=== PATIENT | male | born 1945 | race Caucasian/White ===

== ENCOUNTER → 2019-12-04 | Outpatient (CLI) | payer MEDICARE ==
[~2019-12-04] MED LIST: AMLO10TA8 PO; ATEN100T PO; ATOR20TA37 PO; BENA40TA3 PO; IBUP200C8 PO; LEVE250T5 PO; METF500T17 PO
[2019-12-04 15:18] LABS: ALANINE AMINOTRANSFERASE 18 U/L (12-78); ALBUMIN 3.8 g/dL (3.4-5.0); ANION GAP 4 mmol/L (5-15); CALCIUM 8.7 mg/dL (8.5-10.1); CHLORIDE 109 mmol/L (98-107); CREATININE 1.01 mg/dL (0.7-1.3)
[2019-12-04 15:20] LABS: ALKALINE PHOSPHATASE 82 U/L (45-117); BILIRUBIN,TOTAL 0.6 mg/dL (0.2-1.0); TOTAL PROTEIN 7.3 g/dL (6.4-8.2)
== END | disposition home or self-care (01) ==
LOC: STAR 13:50
PROVIDERS: ATTEND Internal Medicine
DX: Z01.818 Encounter for other preprocedural examination (principal); R00.1 Bradycardia, unspecified; I44.7 Left bundle-branch block, unspecified; K86.89 Other specified diseases of pancreas
CPT/HCPCS: 36415; 80053; 93005

== ENCOUNTER 2019-12-09 06:28 | Day surgery (SDC) | payer MEDICARE ==
[~2019-12-09] VITALS: Ht 175.3 cm; Wt 90.0 kg
[2019-12-09] MEDS ORDERED: LACTATED RINGERS 1,000 ML IV SCH (06:54)
[2019-12-09] MEDS ORDERED: LIDOCAINE-MPF 1%, 2ML INFIL ONE (07:00)
[2019-12-09] MEDS ORDERED: GLYCOPYRROLATE 0.2MG/1ML, 5ML ONE (09:37)
[2019-12-09] MEDS ORDERED: PROPOFOL 50 ML ONE (09:37)
[2019-12-09] MEDS ORDERED: PROPOFOL 10 MG/ML, 20ML ONE (09:59)
[2019-12-09] MEDS ORDERED: ONDANSETRON 2MG/ML, 2ML IV PRN (10:00)
[2019-12-09] MEDS ORDERED: METOPROLOL 1 MG/ML, 5ML IV PRN (10:00)
[2019-12-09] MEDS ORDERED: hydrALAzine 20 MG/ML, 1ML IV PRN (10:00)
[2019-12-09] MEDS ORDERED: ONDANSETRON ODT 8 MG PO PRN (10:00)
[2019-12-09] MEDS ORDERED: MORPHINE SULFATE 4 MG/ML, 1ML IVPush PRN (10:00)
[2019-12-09] MEDS ORDERED: EPHEDRINE 50 MG/ML, 1ML IVPush PRN (10:00)
[2019-12-09] MEDS ORDERED: EPHEDRINE 50 MG/ML, 1ML IM PRN (10:00)
[2019-12-09] MEDS ORDERED: OXYcodone 5 MG/5 ML ORAL.SOL UDC PO PRN (10:00)
[2019-12-09] MEDS ORDERED: DIAZEPAM 5 MG/ML, 2ML IVPush PRN (10:00)
[2019-12-09] MEDS ORDERED: MIDAZOLAM 1 MG/ML, 2ML IV PRN (10:00)
[2019-12-09] MEDS ORDERED: PROMETHAZINE 25 MG/ML, 1ML IV PRN (10:00)
[2019-12-09] MEDS ORDERED: DIPHENHYDRAMINE 50 MG/ML, 1ML IVPush PRN (10:00)
[2019-12-09] MEDS ORDERED: FENTANYL PF 100 MCG/2ML IV PRN (10:00)
== END 2019-12-09 12:30 | disposition home or self-care (01) ==
LOC: OUT 06:28
PROVIDERS: ATTEND Internal Medicine
DX: K86.89 Other specified diseases of pancreas (principal); E11.9 Type 2 diabetes mellitus without complications; Z72.89 Other problems related to lifestyle; Z79.84 Long term (current) use of oral hypoglycemic drugs
CPT/HCPCS: 43238; 82962; 88172; 88173; 88305; J2704; J7120